=== PATIENT | male | born 1955 | race Caucasian/White ===

== ENCOUNTER 2017-01-29 07:07 | Outpatient (CLI) | payer BC ==
[2017-01-29 11:37] LABS: BUN - BLOOD UREA NITROGEN 20 mg/dL (6-20); CALCIUM 9.3 mg/dL (8.5-10.3); CARBON DIOXIDE - CO2 25 mmol/L (21-32); CHLORIDE 104 mmol/L (101-111); CHOL/HDL RATIO 2.6 (<5.0); CHOLESTEROL 205 mg/dL; GFR - MDRD 76 (>89); GLUCOSE 105 mg/dL (70-100); HDL CHOLESTEROL 79 mg/dL; LDL/HDL RATIO 1.4 (<3.6); POTASSIUM 4.2 mmol/L (3.5-5.0); SODIUM 137 mmol/L (135-145); TRIGLYCERIDES 76 mg/dL; VLDL CHOLESTEROL 15 mg/dL
== END 2017-01-29 07:08 | disposition home or self-care (01) ==
LOC: LAB.F 07:07
PROVIDERS: ATTEND Internal Medicine
DX: E78.5 Hyperlipidemia, unspecified (principal)
CPT/HCPCS: 36415; 80048; 80061

== ENCOUNTER 2017-03-14 10:32 | Outpatient (CLI) | payer BC ==
--- NOTE | 2017-03-15 18:37 | XRAY Report ---
THREE VIEWS OF THE RIGHT SHOULDER: 03/14/2017 CLINICAL HISTORY: Pain radiating to the right shoulder. FINDINGS: Soft tissue appears normal. Mild narrowing of the right AC joint is seen. Mild narrowing of the right glenohumeral joint is noted. There is prominent subchondral cyst formation seen in the inferior half of the glenoid. This subchondral cyst probably is a result of osteoarthritic change o r old trauma. If patient has any old x-rays of the right shoulder, they should be obtained for marjorie rison. If none are available, then recommend a repeat x-ray view of the right shoulder in 6 months f or further evaluation. Minimal spur is seen along the inferior aspect of the right acromion. IMPRESSION: 1. MILD OSTEOARTHRITIS OF THE RIGHT AC JOINT. 2. SMALL RIGHT SUBACROMIAL SPUR. 3. MILD NARROWING OF THE RIGHT GLENOHUMERAL JOINT. THIS REPRESENTS OSTEOARTHRITIS. 4. A CIRCULAR CYSTIC LESION IS NOTED IN THE INFERIOR ASPECT OF THE RIGHT GLENOID. THIS HAS A BENIGN CONFIGURATION. IT PROBABLY REPRESENTS A SUBCHONDRAL CYST RELATED TO OSTEOARTHRITIS OR TRAUMATIC BON E CYST. RECOMMEND OLD RIGHT SHOULDER X-RAYS BE OBTAINED FOR COMPARISON. IF NONE ARE AVAILABLE, ROCKY EST A REPEAT X-RAY IN 6 MONTHS TO FURTHER CONFIRM THIS BENIGN ETIOLOGY. JOB #: [id number] EXT JOB #:[id number]
== END 2017-03-14 10:33 | disposition home or self-care (01) ==
LOC: DI.S 10:32
PROVIDERS: ATTEND Internal Medicine
DX: M19.011 Primary osteoarthritis, right shoulder (principal); M75.91 Shoulder lesion, unspecified, right shoulder

== ENCOUNTER 2017-04-13 09:32 | Outpatient (CLI) | payer BC ==
--- NOTE | 2017-04-13 16:48 | MRI Report ---
EXAM: RIGHT SHOULDER MRI WITHOUT CONTRAST EXAM DATE: 04/13/2017 11:01 AM. CLINICAL HISTORY: Pain radiating to right shoulder. COMPARISON: Radiographs 03/14/2017. TECHNIQUE: Multiplanar, multisequence T1-weighted and fluid-sensitive sequences of the shoulder witho ut contrast. Other: None. FINDINGS: Rotator Cuff: Tiny 2-3 mm foci of low-grade intrasubstance insertional tear of the anterior supraspin atus. No appreciable articular or bursal surface extension. Edema and thickening involving distal sup raspinatus. Some ill-defined fraying of the distal bursal surface fibers. There is likely a small aleisha roximately 7 mm x 7 mm low-grade partial-thickness distal bursal surface tear of the supraspinatus. N o high-grade or full-thickness tear identified. No rotator cuff muscle atrophy or fatty replacement. Long Head Biceps Tendon: Intact, demonstrating normal course, signal and morphology. Labrum: Some heterogenous signal raising the possibility of small tear at the posterosuperior labrum. Labrum otherwise intact on this non-arthrographic study. Bones and Articular Surfaces: Moderate cartilage thinning and irregularity within the glenohumeral nanci int. Prominent subchondral cyst formation within the glenoid. Acromioclavicular Joint: Mild degenerative change. Bipartite acromion. Type II acromion. IMPRESSION: 1. Mild supraspinatus tendinosis. 2. Small 2-3 mm low-grade intrasubstance insertional tears at the anterior supraspinatus. Some frayin g at the distal bursal surface. No full-thickness tear identified. 3. Moderate glenohumeral osteoarthritis with glenoid subchondral cyst formation. 4. Bipartite acromion. 5. Some heterogenous high signal at the posterosuperior labrum. Possible small focus of labral tear. [facility] MUSCULOSKELETAL RADIOLOGY SECTION Referring Provider Line: [phone] SITE ID: [id number]
== END 2017-04-13 09:33 | disposition home or self-care (01) ==
LOC: DI 09:32
PROVIDERS: ATTEND Internal Medicine
DX: M75.101 Unspecified rotator cuff tear or rupture of right shoulder, not specified as traumatic (principal); M19.011 Primary osteoarthritis, right shoulder

== ENCOUNTER 2018-04-09 07:11 | Outpatient (CLI) | payer BC ==
[2018-04-09 11:24] LABS: BUN - BLOOD UREA NITROGEN 23 mg/dL (6-20); CALCIUM 8.8 mg/dL (8.5-10.3); CARBON DIOXIDE - CO2 25 mmol/L (21-32); CHLORIDE 100 mmol/L (101-111); CHOL/HDL RATIO 2.5 (<5.0); CHOLESTEROL 203 mg/dL; CREATININE 0.9 mg/dL (0.6-1.2); GFR - MDRD 86 (>89); GLUCOSE 104 mg/dL (70-100); HDL CHOLESTEROL 82 mg/dL; LDL CHOLESTEROL,CALCULATED 103 mg/dL; LDL/HDL RATIO 1.3 (<3.6); SODIUM 134 mmol/L (135-145); VLDL CHOLESTEROL 18 mg/dL
[2018-04-10 08:37] LABS: HEPATITIS C ANTIBODY NON-REACTIVE (NON-REACTIVE)
== END 2018-04-09 07:12 | disposition home or self-care (01) ==
LOC: LAB.F 07:11
PROVIDERS: ATTEND Internal Medicine
DX: Z00.00 Encounter for general adult medical examination without abnormal findings (principal); J30.9 Allergic rhinitis, unspecified; G47.00 Insomnia, unspecified; G47.33 Obstructive sleep apnea (adult) (pediatric); M79.605 Pain in left leg; M25.511 Pain in right shoulder; S43.429A Sprain of unspecified rotator cuff capsule, initial encounter; G47.30 Sleep apnea, unspecified; I10 Essential (primary) hypertension
CPT/HCPCS: 36415; 80048; 80061; 83721; 86803

== ENCOUNTER 2018-04-22 15:19 | Outpatient (CLI) | payer BC ==
[2018-04-22 17:54] LABS: BASOPHILS % (AUTO) 0.7 %; EOSINOPHILS # (AUTO) 0.1 10^3/uL (0.0-0.7); EOSINOPHILS % (AUTO) 1.3 %; HGB - HEMOGLOBIN 15.4 g/dL (14.0-18.0); LYMPHOCYTES # (AUTO) 1.4 10^3/uL (1.5-3.5); LYMPHOCYTES % (AUTO) 20.3 %; MEAN CORPUSCULAR HEMOGLOBIN 32.4 pg (27.0-31.0); MEAN CORPUSCULAR HGB CONC 34.9 g/dL (32.0-36.0); MEAN PLATELET VOLUME 8.6 fL (7.4-11.4); MONOCYTES # (AUTO) 0.7 10^3/uL (0.0-1.0); MONOCYTES % (AUTO) 10.6 %; NEUTROPHILS # (AUTO) 4.7 10^3/uL (1.5-6.6); NEUTROPHILS % (AUTO) 67.1 %; PLT - PLATELET COUNT 243 10^3/uL (130-450); RED BLOOD COUNT 4.74 10^6/uL (4.70-6.10); RED CELL DISTRIBUTION WIDTH 12.8 % (12.0-15.0)
[2018-04-22 20:51] LABS: ALBUMIN 3.9 g/dL (3.2-5.5); ALKALINE PHOSPHATASE 72 IU/L (42-121); ALT ALANINE AMINOTRANSFERASE 31 IU/L (10-60); AST ASPARTATE AMINOTRANSFERASE 28 IU/L (10-42); BILIRUBIN,DIRECT 0.1 mg/dL (0.1-0.5); BILIRUBIN,TOTAL 0.5 mg/dL (0.2-1.0)
== END 2018-04-22 15:20 | disposition home or self-care (01) ==
LOC: LAB.F 15:19
PROVIDERS: ATTEND Internal Medicine
DX: J30.9 Allergic rhinitis, unspecified (principal); E78.5 Hyperlipidemia, unspecified; G47.00 Insomnia, unspecified; G47.33 Obstructive sleep apnea (adult) (pediatric); M79.605 Pain in left leg; M25.511 Pain in right shoulder; I10 Essential (primary) hypertension; R53.83 Other fatigue
CPT/HCPCS: 36415; 80076; 84443; 85025

== ENCOUNTER 2018-06-24 16:40 | Emergency (ER) | payer BC ==
[2018-06-24 16:55] VITALS: BP 146/75
[2018-06-24] MEDS ORDERED: BUFFERED LIDOCAINE 10 ML SYRINGE SUBQ ONE (17:32)
[2018-06-24] MEDS ORDERED: TETANUS/DIPHTHERIA/PERTUSSIS 0.5 ML SYRINGE IM ONE (17:32)
--- NOTE | 2018-06-24 17:34 | ED Physician Documentation ---
PD HPI UPPER EXT INJURY - Stated complaint Stated Complaint: L HAND LAC - Chief complaint Chief Complaint: Laceration - History obtained from History obtained from: Patient - History of Present Illness Location: Left (63-year-old gentleman with unknown tetanus status who is right- handed cut his left hand with pruning saw at home just prior to arrival.) Review of Systems Constitutional: reports: Reviewed and negative Cardiac: reports: Reviewed and negative Respiratory: reports: Reviewed and negative PD PAST MEDICAL HISTORY - Allergies Allergies/Adverse Reactions: Allergies Allergy/AdvReac Type Severity Reaction Status Date / Time No Known Drug Allergies Allergy Verified 06/24/18 16:55 PD ED PE NORMAL - Vitals Vital signs reviewed: Yes - General General: Alert and oriented X 3, No acute distress - Extremities Extremities: Other (On the left hand on the medial side of the second digit just distal to the MCP there is a 1-1/2 cm laceration that is not deep with normal neurovascular status at the tip.) - Neuro Neuro: Alert and oriented X 3, Normal speech Results - Vitals Vitals: Vital Signs - 24 hr 06/24/18 16:52 Temperature 36.5 C Heart Rate 69 Respiratory 16 Rate Blood Pressure 146/75 H O2 Saturation 99 Oxygen O2 Source Room air Procedures - Laceration (location) L hand Length in cm: 1.5 Wound type: Linear Neurovascular status: Sensory intact, Motor intact, Vascular intact Anesthesia: Lidocaine 1%, With bicarb Wound Preparation: Betadine, Irrigated copiously NS Skin layer closure: Nylon, Interrupted, Size #-0 - enter number (4-0), Sutures - enter # (4) Other: Tetanus booster given Complexity: Simple Departure - Departure Disposition: 01 Home, Self Care Clinical Impression: Finger laceration Condition: Good Record reviewed to determine appropriate education?: Yes Instructions: ED Laceration Hand Comments: Come back for any signs of infection which would include: Redness, swelling, drainage, increased pain, or fevers. Follow-up with your physician in About 14 days for suture removal. Your blood pressure was elevated today on check into the emergency department. This does not mean that you have hypertension, it is a common phenomenon to come to the emergency department and have elevated blood pressure. I recommend that you see your primary care physician within the week to have it rechecked when you are feeling better. Discharge Date/Time: 06/24/18 17:52
== END 2018-06-24 17:52 | disposition home or self-care (01) ==
LOC: ED 16:40
DX: S61.412A Laceration without foreign body of left hand, initial encounter (principal); W27.8XXA Contact with other nonpowered hand tool, initial encounter; R03.0 Elevated blood-pressure reading, without diagnosis of hypertension; Z23 Encounter for immunization
CPT/HCPCS: 12001; 90471; 99282; 99283

== ENCOUNTER 2018-12-11 09:35 | Day surgery (SDC) | payer BC ==
[2018-12-11] MEDS ORDERED: LACTATED RINGERS 1,000 ML IV ONE ×2 (09:57→12:20)
[2018-12-11] MEDS ORDERED: MIDAZOLAM 2 MG/2 ML VIAL IVP ONE (11:49)
[2018-12-11] MEDS ORDERED: fentaNYL 250 MCG/5 ML VIAL IVP ONE (11:49)
[2018-12-11 12:27] VITALS: BP 97/63
== END 2018-12-11 09:36 | disposition home or self-care (01) ==
LOC: SDS 09:35
PROVIDERS: ATTEND Internal Medicine
PROC: 0DBM8ZZ Excision of Descending Colon, Via Natural or Artificial Opening Endoscopic (ICD-10-PCS; principal; 2018-12-11 11:00)
DX: Z12.11 Encounter for screening for malignant neoplasm of colon (principal); D12.4 Benign neoplasm of descending colon; K64.8 Other hemorrhoids; K57.30 Diverticulosis of large intestine without perforation or abscess without bleeding
CPT/HCPCS: 45380; J7120

== ENCOUNTER 2019-04-11 09:47 | Outpatient (CLI) | payer BC ==
[2019-04-11 18:08] LABS: BUN - BLOOD UREA NITROGEN 16 mg/dL (6-20); CALCIUM 9.3 mg/dL (8.5-10.3); CARBON DIOXIDE - CO2 26 mmol/L (21-32); CHLORIDE 103 mmol/L (101-111); CHOL/HDL RATIO 2.2 (<5.0); CHOLESTEROL 202 mg/dL; GFR - MDRD 76 (>89); GLUCOSE 94 mg/dL (70-100); HDL CHOLESTEROL 91 mg/dL; LDL CHOLESTEROL,CALCULATED 88 mg/dL; SODIUM 139 mmol/L (135-145); VLDL CHOLESTEROL 23 mg/dL
== END 2019-04-11 09:48 | disposition home or self-care (01) ==
LOC: LAB.S 09:47
PROVIDERS: ATTEND Internal Medicine
DX: E78.5 Hyperlipidemia, unspecified (principal); I10 Essential (primary) hypertension
CPT/HCPCS: 36415; 80048; 80061; 83721

== ENCOUNTER 2020-06-01 07:53 | Outpatient (CLI) | payer BC ==
[2020-06-01 15:59] LABS: BUN - BLOOD UREA NITROGEN 19 mg/dL (6-20); CALCIUM 9.6 mg/dL (8.5-10.3); CARBON DIOXIDE - CO2 26 mmol/L (21-32); CHLORIDE 105 mmol/L (101-111); CHOL/HDL RATIO 2.4 (<5.0); CHOLESTEROL 213 mg/dL; CREATININE 0.8 mg/dL (0.6-1.2); GLUCOSE 98 mg/dL (70-100); HDL CHOLESTEROL 90 mg/dL; LDL CHOLESTEROL,CALCULATED 108 mg/dL; LDL/HDL RATIO 1.2 (<3.6); SODIUM 140 mmol/L (135-145); VLDL CHOLESTEROL 15 mg/dL
== END 2020-06-01 07:54 | disposition home or self-care (01) ==
LOC: LAB.S 07:53
PROVIDERS: ATTEND Internal Medicine
DX: Z00.00 Encounter for general adult medical examination without abnormal findings (principal); J30.9 Allergic rhinitis, unspecified; N52.9 Male erectile dysfunction, unspecified; R53.83 Other fatigue; H91.90 Unspecified hearing loss, unspecified ear; Z86.010 Personal history of colon polyps; E78.5 Hyperlipidemia, unspecified; G47.00 Insomnia, unspecified; G47.33 Obstructive sleep apnea (adult) (pediatric); K40.90 Unilateral inguinal hernia, without obstruction or gangrene, not specified as recurrent; G47.30 Sleep apnea, unspecified; C44.92 Squamous cell carcinoma of skin, unspecified; I10 Essential (primary) hypertension
CPT/HCPCS: 36415; 80048; 80061; 83721

== ENCOUNTER 2021-02-01 09:53 | Outpatient (CLI) | payer BC ==
[2021-02-01 15:07] LABS: CALCIUM 9.6 mg/dL (8.5-10.3); CREATININE 0.9 mg/dL (0.6-1.2); POTASSIUM 4.4 mmol/L (3.5-5.0)
== END 2021-02-01 09:54 | disposition home or self-care (01) ==
LOC: LAB.S 09:53
PROVIDERS: ATTEND Internal Medicine
DX: I10 Essential (primary) hypertension (principal)
CPT/HCPCS: 36415; 80048

== ENCOUNTER 2021-05-12 07:57 | Outpatient (CLI) | payer MEDICARE ==
[2021-05-12 15:39] LABS: BUN - BLOOD UREA NITROGEN 18 mg/dL (6-20); CALCIUM 9.6 mg/dL (8.5-10.3); CARBON DIOXIDE - CO2 23 mmol/L (21-32); CHLORIDE 107 mmol/L (101-111); CHOL/HDL RATIO 2.7 (<5.0); CHOLESTEROL 221 mg/dL; CREATININE 0.9 mg/dL (0.6-1.2); GFR - MDRD 85 (>89); GLUCOSE 104 mg/dL (70-100); HDL CHOLESTEROL 81 mg/dL; LDL CHOLESTEROL,CALCULATED 123 mg/dL; LDL/HDL RATIO 1.5 (<3.6); POTASSIUM 4.2 mmol/L (3.5-5.0); SODIUM 139 mmol/L (135-145); TRIGLYCERIDES 87 mg/dL; VLDL CHOLESTEROL 17 mg/dL
== END 2021-05-12 07:58 | disposition home or self-care (01) ==
LOC: LAB.S 07:57
PROVIDERS: ATTEND Internal Medicine
DX: I10 Essential (primary) hypertension (principal); E78.5 Hyperlipidemia, unspecified
CPT/HCPCS: 36415; 80048; 80061; 83721

== ENCOUNTER 2022-06-07 12:23 | Outpatient (CLI) | payer MEDICARE ==
[2022-06-07 15:27] LABS: CHOL/HDL RATIO 2.2 (<5.0); CHOLESTEROL 213 mg/dL; HDL CHOLESTEROL 97 mg/dL; LDL CHOLESTEROL,CALCULATED 95 mg/dL; TRIGLYCERIDES 103 mg/dL; VLDL CHOLESTEROL 21 mg/dL
[2022-06-08 10:50] LABS: CALCIUM 9.8 mg/dL (8.5-10.3); POTASSIUM 4.2 mmol/L (3.5-5.0)
== END 2022-06-07 12:24 | disposition home or self-care (01) ==
LOC: LAB.S 12:23
PROVIDERS: ATTEND Internal Medicine
DX: I10 Essential (primary) hypertension (principal); E78.5 Hyperlipidemia, unspecified
CPT/HCPCS: 36415; 80048; 80061; 83721; 83880

== ENCOUNTER 2023-06-05 13:17 | Outpatient (CLI) | payer MEDICARE ==
[2023-06-05 19:56] LABS: BUN - BLOOD UREA NITROGEN 22 mg/dL (6-20); CALCIUM 9.5 mg/dL (8.5-10.3); CARBON DIOXIDE - CO2 30 mmol/L (21-32); CHLORIDE 102 mmol/L (101-111); CHOL/HDL RATIO 2.3 (<5.0); CHOLESTEROL 201 mg/dL; CREATININE 1.1 mg/dL (0.6-1.3); GFR - MDRD 67 (>89); GLUCOSE 80 mg/dL (74-104); HDL CHOLESTEROL 86 mg/dL; LDL CHOLESTEROL,CALCULATED 92 mg/dL; LDL/HDL RATIO 1.1 (<3.6); POTASSIUM 4.5 mmol/L (3.5-4.5); SODIUM 137 mmol/L (135-145); TRIGLYCERIDES 117 mg/dL (48-352); VLDL CHOLESTEROL 23 mg/dL
== END 2023-06-05 13:18 | disposition home or self-care (01) ==
LOC: LAB.S 13:17
PROVIDERS: ATTEND Internal Medicine
DX: E78.5 Hyperlipidemia, unspecified (principal); I10 Essential (primary) hypertension
CPT/HCPCS: 36415; 80048; 80061; 83721